=== PATIENT | male | born 1945 | race African-American/Black ===

== ENCOUNTER 2016-09-14 11:29 | Outpatient (CLI) | payer OTHER ==
--- NOTE | 2016-09-14 14:23 | XRay Report ---
Chest 2 views: History: Cough. Findings: Normal cardiomediastinal silhouette. Trachea is midline. Scarring noted in the right perihilar area. No consolidation or pleural effusion. Impression: Scarring right perihilar area and right upper lobe.
== END 2016-09-14 11:30 | disposition home or self-care (01) ==
LOC: XRAY 11:29
PROVIDERS: ATTEND Internal Medicine
DX: J98.4 Other disorders of lung (principal)
CPT/HCPCS: 71020

== ENCOUNTER 2018-10-05 09:23 | Emergency (ER) | payer OTHER ==
[2018-10-05 10:08] LABS: Basophils % (Auto) 0.4 % (0.0-1.8); Eosinophils # (Auto) 0.1 K/mm3 (0.0-0.4); Eosinophils % (Auto) 1.2 % (0.0-4.3); Hematocrit 43.1 % (35.5-45.6); Hemoglobin 14.6 gm/dl (11.8-15.2); Lymphocytes # (Auto) 0.8 K/mm3 (1.2-5.4); Lymphocytes % (Auto) 8.6 % (13.4-35.0); Mean Corpuscular HGB Conc 34 % (32-34); Mean Corpuscular Hemoglobin 31 pg (28-32); Mean Corpuscular Volume 90 fl (84-94); Monocytes # (Auto) 0.8 K/mm3 (0.0-0.8); Monocytes % (Auto) 8.4 % (0.0-7.3); Platelet Count 173 K/mm3 (140-440); Red Blood Count 4.79 M/mm3 (3.65-5.03); Red Cell Distribution Width 14.9 % (13.2-15.2)
[2018-10-05 10:30] LABS: Alanine Aminotransferase 11 units/L (7-56); Albumin 3.8 g/dL (3.9-5); BUN/Creatinine Ratio 22; Blood Urea Nitrogen 20 mg/dL (9-20); Calcium 8.7 mg/dL (8.4-10.2); Hemolysis Index 11; Lipase 31 units/L (13-60)
[2018-10-05] MEDS ORDERED: NACL 0.9% 500 ML 500 ML IV ONE (10:39)
[2018-10-05] MEDS ORDERED: ZOFRAN IV ONE (10:39)
--- NOTE | 2018-10-05 10:55 | Emergency Department Report ---
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 Patient planes of pain to the mid upper abdomen and 6 episodes of diarrhea. Patient states the diarrhea is blue/black in color. He has nausea without vomiting. Denies fever or previous abdominal surgeries. He had a colonoscopy 3-4 months ago. He takes blood pressure medicine to help keep his blood pressure and therefore likely has hypertension. - Related Data Previous Rx's Medication Instructions Recorded Last Taken Type Famotidine [Pepcid] 20 mg PO BID #30 tablet 10/05/18 Unknown Rx Loperamide [Imodium] 2 mg PO Q2HR PRN #20 capsule 10/05/18 Unknown Rx Ondansetron [Zofran Odt] 4 mg PO Q8HR PRN #20 tab.rapdis 10/05/18 Unknown Rx traMADol [Ultram 50 MG tab] 50 mg PO Q6HR PRN #20 tablet 10/05/18 Unknown Rx Allergies Allergy/AdvReac Type Severity Reaction Status Date / Time No Known Allergies Allergy Verified 10/05/18 09:26 ED Review of Systems ROS: Stated complaint: ABDOMINAL PAIN Other details as noted in HPI Comment: All other systems reviewed and negative ED Past Medical Hx - Past Medical History Previous Medical History?: No - Surgical History Past Surgical History?: No - Social History Smoking Status: Current Some Day Smoker Substance Use Type: Alcohol - Medications Home Medications: Home Medications Medication Instructions Recorded Confirmed Last Taken Type Famotidine [Pepcid] 20 mg PO BID #30 tablet 10/05/18 Unknown Rx Loperamide [Imodium] 2 mg PO Q2HR PRN #20 capsule 10/05/18 Unknown Rx Ondansetron [Zofran Odt] 4 mg PO Q8HR PRN #20 tab.rapdis 10/05/18 Unknown Rx traMADol [Ultram 50 MG tab] 50 mg PO Q6HR PRN #20 tablet 10/05/18 Unknown Rx ED Physical Exam - General Limitations: No Limitations - Other Other exam information: General: No limitations, patient is alert in no acute distress Head exam: Atraumatic, normocephalic Eyes exam: Normal appearance, pupils equal reactive to light, extraocular movements intact ENT: Moist mucous membrane, normal oropharynx Neck exam: Normal inspection, full range of motion, no meningismus nontender Respiratory exam: Clear to auscultation bilateral, no wheezes, rales, crackles Cardiovascular: Normal rate and rhythm, normal heart sounds Abdomen: Soft, nondistended, diminished breath sounds, mild generalized tenderness no rebound or guarding Rectal: Guaiac positive brown stool without melena or gross blood Extremity: Full range of motion normal inspection no deformity Back: Normal Inspection, full range of motion, no tenderness Neurologic: Alert, oriented x3, cranial nerves intact, no motor or sensory deficit Psychiatric: normal affect, normal mood Skin: Warm, dry, intact ED Course Vital Signs 10/05/18 10/05/18 10/05/18 09:30 11:19 12:31 Temperature 97.7 F 98.2 F Pulse Rate 77 71 Respiratory 17 18 18 Rate Blood Pressure 154/75 Blood Pressure 146/72 [Right] O2 Sat by Pulse 98 100 Oximetry ED Medical Decision Making - Lab Data Result diagrams: 10/05/18 09:52 10/05/18 09:52 - Radiology Data Radiology results: report reviewed CT ABDOMEN AND PELVIS WITH CONTRAST HISTORY: Generalized abdominal pain with nausea and vomiting for 2 days. COMPARISON: No relevant prior imaging study available. TECHNIQUE: Axial, coronal and sagittal CT imaging of the abdomen and pelvis was performed after injection of an unspecified volume of Omnipaque [address] scans at this location are performed using CT dose reduction for ALARA by means of automated exposure control. FINDINGS: LOWER CHEST: No significant abnormality. LIVER: Scattered tiny probable cysts are seen along the right hepatic lobe. No additional significant abnormality. BILIARY: There is a 5 mm stone located along the gallbladder neck without evidence of cholecystitis. No biliary ductal dilatation is noted. No stones are seen along the common duct. PANCREAS: No significant abnormality. SPLEEN: No significant abnormality. ADRENALS: No significant abnormality. KIDNEYS AND URETERS: Simple appearing renal cysts are noted bilaterally measuring 2.7 cm the right upper renal pole and 2.9 cm at the left upper renal pole. No suspicious renal lesions, stones or hydroureteronephrosis. GI TRACT: No significant abnormality of the stomach, small bowel or colon. The appendix is not seen. PERITONEUM: No free fluid. No free air. No fluid collection. LYMPH NODES: No significant adenopathy. AORTA and ARTERIES: The aorta is normal in caliber with mild generalized atherosclerosis. No additional significant abnormality. IVC and VEINS: No significant abnormality. URINARY BLADDER: No significant abnormality. REPRODUCTIVE ORGANS: No significant abnormality. ADDITIONAL FINDINGS: None. SKELETAL SYSTEM: Generalized osteopenia is noted with degenerative changes of the spine and pelvis. No acute abnormality. IMPRESSION: 1. Cholelithiasis without CT evidence of acute cholecystitis. 2. Additional findings as above. - Medical Decision Making Pt feels better after ED treatment + gallstones on ct normal LFTs, no fever, leukocytosis, or cholecystitis. Outpatient follow-up with surgery recommended guaic + brown stool without normal BUN and H/h therefore unlikely an acute bleed. recent colonoscopy 3-4 months ago. Follow-up with GI recommended Will be treated symptomatically gastroenteritis and gallstones - Differential Diagnosis gastroenteritis, obstruction, colitis Critical Care Time: No Critical care attestation.: If time is entered above; I have spent that time in minutes in the direct care of this critically ill patient, excluding procedure time. ED Disposition Clinical Impression: Gastroenteritis, Gallstones Disposition: - TO HOME OR SELFCARE Is pt being admited?: No Does the pt Need Aspirin: No Condition: Stable Instructions: Gastroenteritis (ED), Biliary Colic (ED) Additional Instructions: Take the medication as prescribed. Follow up with your doctor or the clinic/doctor provided. Return if symptoms worsen as indicated by your kitty keen instructions. follow up with your GI doctor as well. Prescriptions: Loperamide [Imodium] 2 mg PO Q2HR PRN #20 capsule PRN Reason: Diarrhea Famotidine [Pepcid] 20 mg PO BID #30 tablet traMADol [Ultram 50 MG tab] 50 mg PO Q6HR PRN #20 tablet PRN Reason: Pain Ondansetron [Zofran Odt] 4 mg PO Q8HR PRN #20 tab.rapdis PRN Reason: Nausea And Vomiting Referrals: MARNI BRAVO [Other] - 3-5 Days NYLA FRANCO DO [Staff Physician] - 3-5 Days (surgeon ) Time of Disposition: 13:23
[2018-10-05 11:18] LABS: Bilirubin,Urine NEG (Negative); Blood,Urine NEG (Negative); Color,Urine Yellow (Yellow); Mucus,Urine FEW /HPF; Protein,Urine <15 mg/dL mg/dL (Negative); Urobilinogen,Urine < 2.0 mg/dL (<2.0)
[2018-10-05 11:20] VITALS: BP 146/72
[2018-10-05] MEDS ORDERED: PEPCID IV ONE (12:20)
[2018-10-05] MEDS ORDERED: TORADOL IV ONE (12:21)
--- NOTE | 2018-10-05 12:28 | Cat Scan Report ---
CT ABDOMEN AND PELVIS WITH CONTRAST HISTORY: Generalized abdominal pain with nausea and vomiting for 2 days. COMPARISON: No relevant prior imaging study available. TECHNIQUE: Axial, coronal and sagittal CT imaging of the abdomen and pelvis was performed after inje ction of an unspecified volume of Omnipaque [address] scans at this location are performe d using CT dose reduction for ALARA by means of automated exposure control. FINDINGS: LOWER CHEST: No significant abnormality. LIVER: Scattered tiny probable cysts are seen along the right hepatic lobe. No additional significant abnormality. BILIARY: There is a 5 mm stone located along the gallbladder neck without evidence of cholecystitis. No biliary ductal dilatation is noted. No stones are seen along the common duct. PANCREAS: No significant abnormality. SPLEEN: No significant abnormality. ADRENALS: No significant abnormality. KIDNEYS AND URETERS: Simple appearing renal cysts are noted bilaterally measuring 2.7 cm the right up per renal pole and 2.9 cm at the left upper renal pole. No suspicious renal lesions, stones or hydrou reteronephrosis. GI TRACT: No significant abnormality of the stomach, small bowel or colon. The appendix is not seen. PERITONEUM: No free fluid. No free air. No fluid collection. LYMPH NODES: No significant adenopathy. AORTA and ARTERIES: The aorta is normal in caliber with mild generalized atherosclerosis. No addition al significant abnormality. IVC and VEINS: No significant abnormality. URINARY BLADDER: No significant abnormality. REPRODUCTIVE ORGANS: No significant abnormality. ADDITIONAL FINDINGS: None. SKELETAL SYSTEM: Generalized osteopenia is noted with degenerative changes of the spine and pelvis. N o acute abnormality. IMPRESSION: 1. Cholelithiasis without CT evidence of acute cholecystitis. 2. Additional findings as above. Signer Name: Rangel Goodwin MD Signed: 10/05/2018 12:23 PM Workstation Name: [id number]
== END 2018-10-05 14:02 | disposition home or self-care (01) ==
LOC: ED 09:23
DX: K52.9 Noninfective gastroenteritis and colitis, unspecified (principal); K80.20 Calculus of gallbladder without cholecystitis without obstruction; F17.200 Nicotine dependence, unspecified, uncomplicated; I10 Essential (primary) hypertension; Z98.890 Other specified postprocedural states
CPT/HCPCS: 36415; 74177; 80053; 81001; 82271; 83690; 85025; 96374; 96375; 99284; J1885; J2405; J7040; Q9967; 96361